=== PATIENT | male | born 1940 | race Two or more races ===

== ENCOUNTER 2024-02-16 12:20 | Inpatient (IN) | payer OTHER ==
[2024-02-16] MEDS ORDERED: AVAPRO300 MG (13:38)
[2024-02-16] MEDS ORDERED: ATORVASTATIN CA10 MG (13:38)
[2024-02-16] MEDS ORDERED: PERCOCET 10-321 EACH (13:39)
[2024-02-16] MEDS ORDERED: FAMOTIDINE (13:39)
[2024-02-16] MEDS ORDERED: CARDURA8 MG (13:39)
[2024-02-22] MEDS ORDERED: 0.9 % SODIUM CHLORIDE 1,000 ML IV SCH (09:30)
[2024-02-22] MEDS ORDERED: ENALAPRILAT DIHYDRATE 1.25 MG/ML VIAL IV PRN (09:30)
[2024-02-22] MEDS ORDERED: PROMETHAZINE HCL 50 MG/ML AMPUL IM PRN (09:30)
[2024-02-22] MEDS ORDERED: COLACE100 MG PO (09:41)
[2024-02-22] MEDS ORDERED: MEDROLPACK PO (09:41)
[2024-02-22] MEDS ORDERED: AMOX-CLAV 875-1 EACH PO (09:41)
[2024-02-22] MEDS ORDERED: NEURONTIN300 MG PO (09:42)
[2024-02-22] MEDS ORDERED: NEURONTIN800 MG PO (09:43)
[2024-02-22] MEDS ORDERED: VANCOMYCIN HCL 1,000 MG VIAL ONE (10:00)
[2024-02-22] MEDS ORDERED: CEFAZOLIN SODIUM 1,000 MG VIAL ONE ×2 (10:01→16:35)
[2024-02-22] MEDS ORDERED: METHYLPREDNISOLONE SOD SUCC 125 MG VIAL ONE ×2 (10:01→16:40)
[2024-02-22] MEDS ORDERED: METHYLPREDNISOLONE ACETATE 80 MG/ML VIAL ONE (10:58)
[2024-02-22] MEDS ORDERED: VANCOMYCIN HCL 1,000 MG VIAL IR ONE ×2 (11:30)
[2024-02-22] MEDS ORDERED: METHYLPREDNISOLONE SOD SUCC 125 MG VIAL IV ONE (11:30)
[2024-02-22] MEDS ORDERED: METHYLPREDNISOLONE ACETATE 80 MG/ML VIAL IJ ONE (11:30)
[2024-02-22] MEDS ORDERED: DOCUSATE SODIUM 100MG CAP PO SCH (13:00)
[2024-02-22] MEDS ORDERED: MORPHINE SULFATE 8 MG,MORPHINE SULFATE 2 MG IV SCH (13:00)
[2024-02-22] MEDS ORDERED: CEFAZOLIN SODIUM 1,000 MG in 0.9 % SODIUM CHLORIDE 50 ML IV SCH (17:00)
[2024-02-22] MEDS ORDERED: FAMOtidine 20 MG TABLET PO SCH (17:00)
[2024-02-22] MEDS ORDERED: METHYLPREDNISOLONE SOD SUCC 125 MG VIAL IV SCH (17:00)
[2024-02-22] MEDS ORDERED: ACETAMINOPHEN 500 MG GEL..CAP PO PRN (19:45)
[2024-02-22] MEDS ORDERED: GABAPENTIN 800 MG TABLET PO SCH (21:00)
[2024-02-22] MEDS ORDERED: VANCOMYCIN HCL 1,000 MG VIAL IV SCH (21:00)
[2024-02-23] MEDS ORDERED: SODIUM CHLORIDE 0.45 % 1,000 ML IV SCH
[2024-02-23 04:03] LABS: HEMATOCRIT 33.6 % (39.0-48.0); MEAN CELL VOLUME 92.8 fL (80.0-100.00); MEAN CORPUSCULAR HGB CONC 34.4 g/dl (32.0-36.0); PLATELET COUNT 212 K/uL (150-450); RED BLOOD COUNT 3.62 M/uL (4.00-6.00); RED CELL DISTRIBUTION WIDTH 13.1 % (11.5-14.5)
[2024-02-23 04:35] LABS: HEMOGLOBIN 11.6 g/dL (13-16.00)
[2024-02-23 04:45] LABS: CALCIUM 8.7 mg/dL (8.5-10.1); CREATININE SERUM 1.24 mg/dL (0.70-1.30); GFR 55.95; POTASSIUM 4.49 mEq/L (3.5-5.1)
[2024-02-23] MEDS ORDERED: ATORVASTATIN CALCIUM 10 MG TABLET PO SCH (09:00)
[2024-02-23] MEDS ORDERED: IRBESARTAN 300 MG TABLET PO SCH (09:00)
[2024-02-23] MEDS ORDERED: TAMSULOSIN HCL 0.4 MG CAP PO SCH (09:00)
[2024-02-23] MEDS ORDERED: DOXAZOSIN MESYLATE 8 MG TABLET PO SCH (09:00)
[2024-02-23] MEDS ORDERED: ATORVASTATIN CALCIUM 10 MG TABLET PO STA (09:28)
[2024-02-23] MEDS ORDERED: IRBESARTAN 300 MG TABLET PO STA (09:28)
[2024-02-23] MEDS ORDERED: DOXAZOSIN MESYLATE 8 MG TABLET PO STA (09:28)
[2024-02-24] MEDS ORDERED: ATORVASTATIN CALCIUM 10 MG TABLET PO SCH (09:00)
[2024-02-24] MEDS ORDERED: DOXAZOSIN MESYLATE 8 MG TABLET PO SCH (09:00)
[2024-02-24] MEDS ORDERED: IRBESARTAN 300 MG TABLET PO SCH (09:00)
== END 2024-02-23 12:19 | disposition home or self-care (01) | DRG 454 ==
LOC: O/R 02-22 06:40 → SURH 02-22 10:00 → PED 02-22 14:49
PROVIDERS: ADMIT Orthopaedic Surgery Orthopaedic Surgery of the Spine; ATTEND Orthopaedic Surgery Orthopaedic Surgery of the Spine
PROC: 0SG0071 Fusion of Lumbar Vertebral Joint with Autologous Tissue Substitute, Posterior Approach, Posterior Column, Open Approach (ICD-10-PCS; 2024-02-22)
PROC: 0ST20ZZ Resection of Lumbar Vertebral Disc, Open Approach (ICD-10-PCS; 2024-02-22)
PROC: 0QB30ZZ Excision of Left Pelvic Bone, Open Approach (ICD-10-PCS; 2024-02-22)
PROC: 07DR0ZZ Extraction of Iliac Bone Marrow, Open Approach (ICD-10-PCS; 2024-02-22)
PROC: 4A1104G Monitoring of Peripheral Nervous Electrical Activity, Intraoperative, Open Approach (ICD-10-PCS; 2024-02-22)
PROC: XRGB0R7 Fusion of Lumbar Vertebral Joint using Custom-Made Anatomically Designed Interbody Fusion Device, Open Approach, New Technology Group 7 (ICD-10-PCS; principal; 2024-02-22 10:00)
DX: M43.16 Spondylolisthesis, lumbar region (principal); F11.20 Opioid dependence, uncomplicated; M48.062 Spinal stenosis, lumbar region with neurogenic claudication; I10 Essential (primary) hypertension